=== PATIENT | male | born 1950 | race Caucasian/White ===

== ENCOUNTER 2022-05-16 12:10 | Day surgery (SDC) | payer OTHER, SELFPAY ==
--- NOTE | 2022-05-15 11:57 | HO.ANESPROP2 ---
Documented by User: Griselda Berumen NP 05/15/22 11:58 HPI - Anesthesia Eval Consult details Narrative: 71yo M for Upper Endoscopy Per GI note, Dr Kc spoke with PCP and low cardiac risk (remote hx NV) [facility] Past Medical History Medical History (Updated 05/15/22 @ 11:58 by Griselda Berumen NP) HLD (hyperlipidemia) HTN (hypertension) Myocardial infarct, old Surgical History Surgical History (Updated 05/15/22 @ 11:59 by Griselda Berumen NP) H/O colonoscopy Hx of appendectomy Social History Social History (Updated 05/15/22 @ 11:59 by Griselda Berumen NP) Alcohol intake: current Alcohol intake frequency: holidays/special occasions only Patient Tobacco Use Status: Current everyday Tobacco user Tobacco use type: Cigarette Cigarette Packs Per Day: 0.5 Cigarettes Per Day: 10 Meds Allergies Allergy/AdvReac Type Severity Reaction Status Date / Time No Known Allergies Allergy Verified 05/12/22 11:17 Home Medications Medication Instructions Recorded Confirmed Last Taken Type esomeprazole magnesium 20 mg 20 mg PO QAM 05/12/22 05/16/22 Unknown History capsule,delayed release hydrochlorothiazide 25 mg tablet 25 mg PO DAILY 05/12/22 05/16/22 Unknown History metoprolol succinate 25 mg 12.5 mg PO DAILY 05/12/22 05/16/22 Unknown History tablet,extended release 24 hr [id number] 120 mcg-lutein 1 tab PO DAILY 05/12/22 05/16/22 Unknown History 150 mcg-herb 50 mg chewable tablet (Alive Men's 50 Plus Multivitamin) rosuvastatin 20 mg tablet 20 mg PO DAILY 05/12/22 05/16/22 Unknown History ubidecarenone-omega 3-vit E 25 1 cap PO DAILY 05/12/22 05/16/22 Unknown History mg-150 (90-60) mg-200 unit capsule (Co Z-21-Dywaixn E-Fish Oil) aspirin 81 mg tablet 81 mg PO DAILY 05/16/22 05/16/22 05/14/22 History Exam Exam Date and Time: May 15, 2022 1157 Assessment and Plan Assessment Anesthesia Assessment: Chart Reviewed Documented by User: Javier Robertson MD 05/16/22 16:14 [facility] Past Medical History Medical History (Updated 05/15/22 @ 11:58 by Griselda Berumen NP) HLD (hyperlipidemia) HTN (hypertension) Myocardial infarct, old Functional capacity: independent ambulation Family History Family history of problems with anesthesia: No Surgical History Surgical History (Updated 05/15/22 @ 11:59 by Griselda Berumen NP) H/O colonoscopy Hx of appendectomy History of Problems with Anesthesia: No Social History Social History (Updated 05/15/22 @ 11:59 by Griselda Berumen NP) Alcohol intake: current Alcohol intake frequency: holidays/special occasions only Patient Tobacco Use Status: Current everyday Tobacco user Tobacco use type: Cigarette Cigarette Packs Per Day: 0.5 Cigarettes Per Day: 10 Meds Allergies Allergy/AdvReac Type Severity Reaction Status Date / Time No Known Allergies Allergy Verified 05/12/22 11:17 Home Medications Medication Instructions Recorded Confirmed Last Taken Type esomeprazole magnesium 20 mg 20 mg PO QAM 05/12/22 05/16/22 Unknown History capsule,delayed release hydrochlorothiazide 25 mg tablet 25 mg PO DAILY 05/12/22 05/16/22 Unknown History metoprolol succinate 25 mg 12.5 mg PO DAILY 05/12/22 05/16/22 Unknown History tablet,extended release 24 hr [id number]-[id number] 120 mcg-lutein 1 tab PO DAILY 05/12/22 05/16/22 Unknown History 150 mcg-herb 50 mg chewable tablet (Alive Men's 50 Plus Multivitamin) rosuvastatin 20 mg tablet 20 mg PO DAILY 05/12/22 05/16/22 Unknown History ubidecarenone-omega 3-vit E 25 1 cap PO DAILY 05/12/22 05/16/22 Unknown History mg-150 (90-60) mg-200 unit capsule (Co D-76-Ejujlqo E-Fish Oil) aspirin 81 mg tablet 81 mg PO DAILY 05/16/22 05/16/22 05/14/22 History Exam Airway Mallampati Class: III TM Dist: >3cm Neck ROM: Full Loose/Missing/Broken Teeth: Yes Heart: S1,S2 Lungs: b/l breath sounds Assessment and Plan Assessment Anesthesia Assessment: Anesthesia Plan Discussed Final Anesthetic Review Family History of Problems with Anesthesia: No History of Problems with Anesthesia: No NPO: Yes ASA Class: III Final Preanesthetic Review: Meds/Allgs Chart Reviewed, Consent Obtained/Reviewed and Anes Risks/Benef Reviewed Patient Risk: Intermediate Procedure Risk: Intermediate Anesthetic Plan Anesthetic Plan: MAC: Disposition: Standard PACU
[2022-05-16 12:18] VITALS: BMI 35.9
[2022-05-16 12:26] VITALS: BP 130/51; PULSE 48; RESP 16; TEMP 36.2; O2SAT 94
[2022-05-16] MEDS: Lactated Ringers 1,000 ML 100 ML IVCONT (12:46)
--- NOTE | 2022-05-16 13:19 | MHC.SHP ---
Pre-Procedural Eval Section A Date of Service: 05/16/22 Section B Chief Complaint: Malignant neoplasm of esophagus, Relevant Family History (Specify if Yes): No Relevant Social History: None Present Medications: see Short Stay Collaborative assessment Medical History: Significant History (LA, HTN, HLP) History of Previous Operations: Relevant previous surgery/procedure and date(s) (colonoscopy, appendectomy) Allergies: Allergies Allergy/AdvReac Type Severity Reaction Status Date / Time No Known Allergies Allergy Verified 05/12/22 11:17 Review of Systems Sugical H&P ROS: Negative: Constitution, Cardiovascular, Respiratory, Neurological, Psychiatric, Hem-Onc, Allergic/Immunologic, Gastrointestinal, Genitourinary, Musculoskeletal, Integumentary, Endocrine and Eyes/Ears/Nose/Throat Exam Surgical H&P Exam: Normal: HEENT, Normal: Heart, Normal: Lungs, Normal: Extremities, Normal: Abdomen, Normal: Skin and Normal: Neurological Plan Diagnosis/Plan: Unchanged I have reviewed the history and physical and performed a pertinent physical examination on my patient. No changes have occurred unless specified. concern for neoplasia,EGD Time Spent With Patient Time: Total time managing care of this patient today ____ minutes.
--- NOTE | 2022-05-16 13:21 | W.PM.OPN ---
Operative Note Operative Note Date of Service: 05/16/22 Narrative: Procedure Description: EGD Indication: abn ba swallow, stricture, dysphagia Anesthesia: MAC FLEXIBLE TRANSORAL UPPER GASTROINTESTINAL ENDOSCOPY UPPER ENDOSCOPY Consent: Indications for the procedure and potential complications of bleeding, perforation, reaction to medications and missed diagnosis were discussed with the patient and informed consent was obtained. Instrument: Olympus GIF H 190 J mid size upper endoscope Monitoring: Vital signs and clinical assessment, continuous EKG monitoring, Pulse oximetry, Carbon Dioxide monitoring and blood pressure monitoring were done throughout the procedure. Procedure: The patient was placed in the left lateral decubitis position and pre-procedure medications were administered and a bite block was placed. The endoscope was inserted into the mouth and advanced under direct vision to the third part of duodenum. A careful inspection was made as the upper endoscope was withdrawn including a retroflexed examination of the proximal stomach; Findings and interventions are described below. Findings: Larynx:normal Esophagus: GE junction at 41 cm, diaphragm hiatus at 41 cm, irregular stricture noted with islands of salmon pink tissue, friability and induration for about 6cm in the distal esophagus. There was a nodular lesion at the proximal end of the abnormal tissue which was biopsied. The scope was able to bypass the stricture with gentle pressure Stomach: Patchy gastric erythema. Biopsies were obtained. Grade 2 flap valve on retroflexed examination of the cardia. 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
[2022-05-16 13:54] VITALS: BP 102/52; PULSE 69; RESP 16; TEMP 36.5; O2SAT 98
[2022-05-16 14:09] VITALS: BP 102/48; PULSE 69; RESP 16; TEMP 36.5; O2SAT 93
[2022-05-16 14:25] VITALS: BP 128/62; O2SAT 93
== END 2022-05-16 14:56 | disposition home or self-care (01) ==
PROVIDERS: PCP Internal Medicine; Visit Provider Internal Medicine Gastroenterology
PROC: 0DJ08ZZ Inspection of Upper Intestinal Tract, Via Natural or Artificial Opening Endoscopic (ICD-10-PCS; CPT 43235; principal; 2022-05-16 13:50)
DX: C15.9 Malignant neoplasm of esophagus, unspecified (principal); K22.2 Esophageal obstruction; R13.10 Dysphagia, unspecified; K22.70 Barrett's esophagus without dysplasia; K29.80 Duodenitis without bleeding; K29.50 Unspecified chronic gastritis without bleeding; K44.9 Diaphragmatic hernia without obstruction or gangrene; Z80.0 Family history of malignant neoplasm of digestive organs; I10 Essential (primary) hypertension; I25.2 Old myocardial infarction; E78.5 Hyperlipidemia, unspecified; Z79.899 Other long term (current) drug therapy; Z79.82 Long term (current) use of aspirin; F17.210 Nicotine dependence, cigarettes, uncomplicated
CPT/HCPCS: 43239; 88305; 88341; 88342; 88360; J2250